=== PATIENT | female | born 1995 | race Native Hawaiian/Other Pacific Islander ===

== ENCOUNTER 2018-12-18 14:28 | Outpatient (CLI) | payer OTHER ==
[~2018-12-18 14:28] MED LIST: KETO2CRE EX
== END 2018-12-18 23:08 | disposition home or self-care (01) ==
LOC: LABW 14:28
DX: Z00.00 Encounter for general adult medical examination without abnormal findings (principal)
CPT/HCPCS: 36415; 86317

== ENCOUNTER 2020-01-01 16:04 | Outpatient (CLI) | payer OTHER | END 2020-01-01 19:36 | disposition home or self-care (01) | LOC: LAB 16:04 | DX: U07.1 COVID-19 (principal); Z20.828 Contact with and (suspected) exposure to other viral communicable diseases | CPT/HCPCS: 87635; G2023; U00003; U0002 ==

== ENCOUNTER 2020-09-11 16:37 | Outpatient (CLI) | payer OTHER | END 2020-09-11 18:17 | disposition home or self-care (01) | LOC: RAD 16:37 | PROVIDERS: ATTEND Internal Medicine | DX: M25.571 Pain in right ankle and joints of right foot (principal) ==